=== PATIENT | female | born 1940 | race African-American/Black ===

== ENCOUNTER 2016-10-10 10:29 | Observation (INO) | payer OTHER ==
--- NOTE | ~2016-10-10 | MR18 ---
[facility] A Service of [facility] & [facility] RADIOLOGY TEXT RESULTS PATIENT: HARVINDER AMOS LOCATION: [facility] 323-01 : 42 UNIT #: [id number] AGE: [address]: Benjamin Gutiérrez MD SEX: F ORDER DR: [id number] [facility] [address] [place], [place] [address] [id number] I MR#: [id number] Acc #: [id number] NAME: HARVINDER AMOS : 1940 SEX: F STUDY DATE/TIME: 10/10/2016 13:00 [facility] STUDY DESCRIPTION: MR Brain Wo Contrast Attending Physician: Benjamin Gutiérrez M.D. Ordering Physician: Keny Leonard M.D. Primary Care Physician: Zeyad Amaya M.D. MRI CENTER REPORT This report is preliminary unless electronic signature is present. EXAM MRI of the brain without HISTORY Weakness, left-sided weakness. Patient unresponsive. Started having strokes 08/28/2016, per family. Patient has a history of hypertension, stroke and TIA, diabetes. No known trauma history. No known cancer history. TECHNIQUE MRI brain was performed without contrast using routine 1.5-T imaging technique. COMPARISON There is an earlier head CT from the same day. FINDINGS There is no evidence for a recent ischemic insult on the diffusion series. There is partly demonstrated degenerative disease in the cervical spine. There is no Chiari-I malformation. There is mild generalized atrophy. There is no extraaxial fluid collection. There are extensive lacunar insults in the basal ganglia and thalami most focally involving the left thalamus anteromedially. This includes a portion of the left internal capsule, and there is left-sided Wallerian degeneration with signal abnormality and volume loss extending into the left-sided cerebral peduncle and edelmira, and this would be consistent with right body weakness chronically. Signal abnormality is seen diffusely in the edelmira, and there is extensive signal abnormality in the supratentorial white matter, especially in the frontal lobes. These are probably all manifestations of small vessel disease, given age group and history provided. The large left-sided lacunar insult in the basal ganglia extends superiorly into the left-sided rice radiata and involves the left side body of the caudate. [facility]. [facility] A Service of [facility] & [facility] RADIOLOGY TEXT RESULTS PATIENT: HARVINDER AMOS LOCATION: [facility] 323-01 : 42 UNIT #: [id number] AGE: [address]: Benjamin Gutiérrez MD SEX: F ORDER DR: There are old blood products associated with this chronic insult. No recent intracranial hemorrhage is suspected on MRI. No intracranial mass effect. The major intracranial flow voids are maintained. Mucous retention cyst or polyp in the left maxillary sinus. Mastoid air cells are clear. No sinus air-fluid level. IMPRESSION 1. No evidence for a recent ischemic insult on the diffusion series. 2. There is extensive probable sequelae of small vessel disease. This includes a chronic insult that has resulted in left-sided Wallerian degeneration. This would account for right body weakness. STAT * RESULT Dictated by... Luz Pond M.D. THIS IS AN ELECTRONICALLY VERIFIED REPORT Luz Pond M.D. at 10/10/2016 3:12 PM Joey TD: 10/10/2016 14:43 JOB #: [id number] MRI CENTER REPORT Page 1 of 1 COPY
--- NOTE | ~2016-10-10 | CT72 ---
[facility] A Service of [facility] RADIOLOGY TEXT RESULTS PATIENT: HARVINDER AMOS LOCATION: [facility] 323-01 : 42 UNIT #: [id number] AGE: [address]: Benjamin Gutiérrez MD SEX: F ORDER DR: [id number] [facility] [address] [place], [place] [address] [id number] MR#: [id number] Acc #: [id number] NAME: HARVINDER AMOS : 1940 SEX: F STUDY DATE/TIME: 10/10/2016 10:38 UNIT: [facility] ROOM: STUDY DESCRIPTION: CT Head Wo Contrast Stroke Attending Physician: Keny Leonard M.D. Ordering Physician: Ed Doctor [id number] [facility] MEDICAL IMAGING REPORT This report is preliminary unless electronic signature is present EXAM Had CT without contrast HISTORY Left-sided weakness, onset today. TECHNIQUE Axial images were obtained without contrast. This CT exam was performed with one or more of the following radiation dose reduction techniques: automatic exposure control, adjustment of mA and/or kV according to patient size, and iterative reconstruction. COMPARISON 01/01/2016 FINDINGS Generalized atrophy is seen. There are extensive chronic ischemic changes around the ventricles, more on the left than on the right. There is no evidence of mass lesion, hemorrhage or edema. Chronic ischemic change is also seen in the left upper edelmira. Since the previous examination no new lesions are identified. There is no evidence of hemorrhage, edema or midline shift. Extraaxial structures are unremarkable. IMPRESSION Atrophy with extensive chronic ischemic changes, left greater than right. No acute findings. No changes since the previous scan. Dictated by... Samy Miller M.D. THIS IS AN ELECTRONICALLY VERIFIED REPORT Samy Miller M.D. at 10/10/2016 4:33 PM [facility] A Service of [facility] RADIOLOGY TEXT RESULTS PATIENT: HARVINDER AMOS LOCATION: [facility] 323-01 : 42 UNIT #: [id number] AGE: [address]: Benjamin Gutiérrez MD SEX: F ORDER DR: MARIA C/meli TD: 10/10/2016 11:38 JOB #: [id number] MEDICAL IMAGING REPORT Page 1 of 1 COPY
--- NOTE | ~2016-10-10 | EKG ---
PATIENT: HARVINDER AMOS UNIT #: [id number] Ventricular Rate: 73 BPM Atrial Rate: 73 BPM P-R Interval: 140 ms QRS Duration: 84 ms Q-T Interval: 426 ms QTC Calculation(Bezet): 469 ms P Tichnor: 59 degrees Calculated R Tichnor: -44 degrees Calculated T Tichnor: 13 degrees Diagnosis Line: Normal sinus rhythm Diagnosis Line: Left axis deviation Diagnosis Line: Abnormal ECG Diagnosis Line: No previous ECGs available Diagnosis Line: Confirmed by MILTON LEVY MD ([id number]) on Diagnosis Line: 10/11/2016 9:03:18 AM INTERPRETING MD: MILDRED TANG
--- NOTE | ~2016-10-10 | CO ---
Unit #: [id number] #: [id number] Patient: HARVINDER AMOS [address] [facility] [address] [place], [place] [address] [id number] I MR#: [id number] NAME: HARVINDER AMOS ROOM: 323 Age: 76 Sex: F Admission Date: 10/10/2016 : 1940 Attending Physician: Lm Wyatt Primary Care Physician: Zeyad Amaya M.D. CONSULTATION REPORT REASON FOR CONSULT Code stroke protocol. PATIENT IDENTIFICATION This is a 76-year-old, right-handed, female evaluated in the ER. The patient is now in 323 at [facility]. SOURCE OF INFORMATION Obtained from the patient's daughter at the bedside, as well as the medical record. HISTORY OF PRESENT ILLNESS This is a 76-year-old, right-handed, female with a past medical history of advanced dementia who was brought in via EMS as a code stroke alert this morning. She was apparently in transit to [facility] from her home. She lives with family. She was apparently noted to be poorly responsive. Her eyes were looking out, and then she was noted to have left-sided weakness or paralysis. EMS was called, and she was brought here for further evaluation. Upon arrival here, she was noted by the ED physician to be flaccid on the left side. Her vital signs were stable, so she went straight to the CT scanner, and I saw the patient while there. Her symptoms were not noted in the CAT scanner and appeared to have resolved; thus, she was not a candidate for acute intervention with alteplase or thrombectomy. She was able to move all extremities. Her lower extremities are weaker bilaterally. She does use a walker and sometimes a wheelchair at baseline, but she was nonfocal and moving all extremities equally and able to name and identify and follow simple commands. She is confused and not fully alert. She does require stimulation. Her daughter arrived shortly thereafter and reports that this mental status is her baseline. Her head CT was negative for any acute intracranial abnormalities. It did show atrophy with extensive chronic ischemic changes, left greater than right, but again, no acute findings and no changes from previous exam. She was unable to undergo a CT angiogram of the head and neck given her hhboi-ve-voth creatinine was 1.6 and estimated GFR was 40, and the CT scanner and her symptoms were resolving and not suggestive of a large artery stroke at this time. Thus, we elected to hold off on a CT angiogram, and Dr. Irizarry recommended that she go for a STAT MRI of the brain and MRA of the head and neck, no contrast. She had an MRI of the brain without contrast that did not show any Unit #: [id number] #: [id number] Patient: HARVINDER AMOS evidence for a recent ischemic insult on the diffusion series. It does show extensive probable sequelae of small vessel disease, as well as a chronic insult that has resulted in left-sided Wallerian degeneration, although that does not explain her left-sided weakness, which has resolved. MRA of the neck was done, as well, which by NASCET criteria shows no hemodynamically-significant narrowing at either carotid bifurcation with both vertebral arteries patent in their visualized portions, with the left being dominant. The right is smaller. She had an MRA of the head, as well, without contrast, which has been reviewed at length and also discussed with Dr. Irizarry. Please see report for detailed findings. They are most consistent with severe intracranial atherosclerotic disease. All vascular territories involved with multiple areas of high-grade stenosis or possibly occlusion with reconstitution, per radiology report. The former is favored since MR angiography has a tendency to overestimate stenosis. Per radiology report, suspicion that is progressed from a CT angiogram of 11/28/2015. Less likely consideration would be vasculitis. The patient is unable to provide any meaningful history, and otherwise history, as discussed above, is obtained from EMS and also the patient's daughter. She was brought in as a code stroke because her last known well was within the hour prior to arrival. PAST MEDICAL HISTORY 1. Advanced dementia. She lives with family, including her daughter, and goes to [employer] [facility] [employer] daycare during the day. 2. History of stroke. 3. Multiple TIAs. 4. Diabetes mellitus. She is insulin dependent. 5. Hyperlipidemia. 6. B12 deficiency. FAMILY HISTORY Noncontributory to the presenting condition, especially given her age. SOCIAL HISTORY The patient lives with her daughter. She goes to [employer] [facility] [employer] during the day. She has advanced dementia. At baseline uses a walker and sometimes a wheelchair and requires help with normal ADLs. At baseline she is confused. No current tobacco use, alcohol use or illicit drug use. ALLERGIES Penicillin. HOME MEDICATIONS (as per med/rec) 1. Lipitor 80 mg p.o. daily. 2. Clopidogrel 75 mg p.o. daily. 3. Felodipine ER 5 mg p.o. daily. 4. Namzaric 28/10 mg capsule 1 tab p.o. daily. 5. Sertraline 50 mg p.o. daily. 6. Vitamin B12 - 1 vial IM monthly on the 10th of every month. 7. Aspirin 325 mg p.o. daily, although the patient's daughter states that she does not believe she has been taking that recently. 8. Levemir insulin 5 units subcu daily. 9. Zetia 10 mg p.o. daily. Unit #: [id number] #: [id number] Patient: HARVINDER AMOS REVIEW OF SYSTEMS A 14-point review of systems was attempted with the daughter. Discussed with her. The patient is unable to contribute. Pertinent positives are as discussed above; otherwise, negative. There has been no report of any recent infectious disease or illness, headache or other neurologic changes prior to this morning. No headache or neck pain, fever or chills, shortness of air, chest pain, nausea or vomiting, abdominal pain or any bruising or bleeding. PHYSICAL EXAMINATION VITAL SIGNS: Temperature 98.4. On arrival she was 98.6. Pulse 60, respirations 18, blood pressure 142/87. Blood pressure in the ER on arrival was 121/69. Oxygen saturation 100%. Height 5'4", weight 147 pounds, BMI 25. NEUROLOGIC EXAMINATION MENTAL STATUS: The patient is awake but not fully alert. She is arousable to voice and touch. She is confused, but she can name and identify and follow some simple commands. Her laundry housekeeping aide strength is equal. She withdraws equally in the lower extremities. She has no drift in the upper extremities. She does have some left facial asymmetry but no flattening of the nasolabial fold with grimace. Unable to assess cognitive exam in detail, as she has baseline advanced dementia, but again, she can name and identify and follow simple commands. She is oriented to person, but she is not oriented to place or time. CRANIAL NERVE EXAM: She responds to threats in the primary and peripheral visual murrell. Eyes are conjugate without ptosis or nystagmus. Difficult examination of extraocular movements, but with head turning, she does not appear to have any deficit. Unable to assess sensation of the face and scalp. Strength of muscles of facial expression, again, as discussed above. Hearing is intact to conversation. Unable to assess tongue, uvula or palate at this time due to poor patient cooperation. Head turning is unremarkable spontaneously. Neck is supple. MOTOR EXAM: As discussed above. She does have a drift of the lower extremities bilaterally to the bed, but they are equal, and she does withdraw equally and responds to noxious stimuli in lower extremities against gravity. GAIT AND ROMBERG: Deferred. REFLEXES: Unable to elicit. Toes are equivocal. COORDINATION: Unable to full assess. DIAGNOSTIC STUDIES Please see above. LABS: Sodium 158, potassium 3.1, chloride 123, CO2 29, glucose 138, BUN 60, creatinine 1.8, estimated GFR 31.6, calcium 9.5. PT 12.1, INR 1.1, PTT 22.2. Troponin less than 0.05. White blood cell count 11.4, hemoglobin 14.7, hematocrit 46.7, platelet count 128. Glucose on arrival 148. IMPRESSION 1. Change in mental status with decreased responsiveness and reported left-sided hemiparesis, resolved. No ischemic stroke. Consider TIA versus possible seizure in the differential diagnosis. 2. Advanced dementia. Patient is at her baseline. 3. 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 Suspect may be contributing to the patient's advanced dementia. Continue aspirin and Plavix and intensive statin therapy. Unit #: [id number] #: [id number] Patient: HARVINDER AMOS 4. Hyperlipidemia. 5. Diabetes mellitus, insulin dependent. 6. Hypernatremia. Defer to primary. 7. Kidney disease. PLAN Patient was seen initially at the time of code stroke and reevaluated by myself, as well as Dr. Irizarry, once the patient was transferred on the floor. We discussed with the patient's daughter, who wanted the patient transferred to [facility], as the patient typically goes there. However, it looks like the patient is staying here, as the patient does need transfer for higher level of care at this time. We will follow the patient along with you as long as she is here. At this time will check platelet function analysis for aspirin and Plavix but concern that she is already maximally treated on medical management. Will check a two-D echo and reevaluate in the morning with Dr. Irizarry and see how the patient is doing. At this time nothing to suggest a cardioembolic cause and suspect this is likely secondary to severe intracranial vascular disease. She is high risk for further TIA and stroke and has extensive chronic small vessel changes. She is already being treated maximally on aspirin and Plavix, although her daughter states that she does not believe she was taking her aspirin at home, so may only be truly on single antiplatelet therapy. Definitely recommend dual antiplatelet therapy and intensive statin therapy, on which we have put the patient. Further recommendations to be made pending workup and further clinical course. We will also order an EEG. We thank you very much for allowing us to assist in the care of this patient. Dictated by... Justina Menard A.P.R.N. for Gaye Pyle/lorie TD: 10/11/2016 09:23 JOB #: [id number] CONSULTATION REPORT Page 1 of 1 X Justina Menard STATION MECHANIC X CONSULTATION REPORT
--- NOTE | ~2016-10-10 | MR134 ---
[facility] A Service of [facility] & [facility] RADIOLOGY TEXT RESULTS PATIENT: HARVINDER AMOS LOCATION: [facility] 323-01 : 42 UNIT #: [id number] AGE: [address]: Benjamin Gutiérrez MD SEX: F ORDER DR: [id number] [facility] [address] [place], [place] [address] [id number] I MR#: [id number] Acc #: [id number] NAME: HARVINDER AMOS : 1940 SEX: F STUDY DATE/TIME: 10/10/2016 13:26 UNIT: [address] ROOM: [facility] STUDY DESCRIPTION: MR MRA Neck Wo Contrast Attending Physician: Benjamin Gutiérrez M.D. Ordering Physician: Keny Leonard M.D. Primary Care Physician: Zeyad Amaya M.D. MRI CENTER REPORT This report is preliminary unless electronic signature is present. EXAM MR angiogram of the neck without HISTORY The patient has been having strokes since 08/28/2016 per patient family. Patient herself is unresponsive and unable to provide history. She does have a history of hypertension and diabetes. No history of cancer or trauma provided. COMMENT MR angiography performed neck vessels centered at the level of the carotid bifurcations. By NASCET criteria, no hemodynamically-significant narrowing is appreciated at either carotid bifurcation. I suspect that there is mild stenosis on the right about 20% diameter and mild stenosis on the left about 5% diameter. Both vertebral arteries are patent. The left is mildly dominant. IMPRESSION By NASCET criteria, no hemodynamically-significant narrowing is suspected at either carotid bifurcation. Both vertebral arteries are patent in their visualized portions, left dominant. STAT * RESULT Dictated by... Luz Pond M.D. THIS IS AN ELECTRONICALLY VERIFIED REPORT Luz Pond M.D. at 10/10/2016 3:12 PM NATALIE/meli STS. [facility] A Service of [facility] RADIOLOGY TEXT RESULTS PATIENT: HARVINDER AOMS LOCATION: [facility] 323-01 : 42 UNIT #: [id number] AGE: [address]: Benjamin Gutiérrez MD SEX: F ORDER DR: TD: 10/10/2016 14:51 JOB #: [id number] MRI CENTER REPORT Page 1 of 1 COPY
--- NOTE | ~2016-10-10 | A ---
[facility] Nutrition Therapy DATE: 10/11/16 Patient: HARVINDER AMOS Physician: MORCAR Address: [address] Room/Bed: [address] [place] [address], Zip: [place] [address] Admit Date: 10/10/16 Date of : 42 Height: 5 4 Weight: 147 67 NUTRITIONAL ASSESSMENT: REASON: PT SEEN FOR DX + CONSULT PT IS 76 Y.O. FEMALE ADMITTED FOR TIA PMH: ADVANCED DEMENTIA, MULTIPLE TIAs, DM, HLD, B12 DEFICIENCY Anthropometrics: 5'4", WT: 147# (67 KG), BMI: 25.2 Labs: BUN: 51, CREAT: 1.5, K+:3.3, NA+:154, A1c: 6.8 Meds: KCL, NOVOLOG, D5% I/O & Bowel function: 600/2 Skin Integrity: NO KNOWN SKIN ISSUES Estimated Nutrition Needs: INCREASED NEED 2' ?WEIGHT LOSS NOTED, DECREASED PO INAKE AND APPETITE Assessment: CHART REVIEWED AND EVENTS NOTED. PT SEEN FOR DX. PT UNABLE TO PROVIDE HISTORY 2' PMH (ADVANCED DEMENTIA). RD SPOKE TO FAMILY. FAMILY REPORTS PT TO HAVE DECREASED PO INTAKE 2' DECREASED APPETITE PAST MONTH 2' "NOT FEELING WELL". FAMILY ADDS THAT PT HAS LOST ~20# PAST 2 MONTHS?/NOTES UBW IS ~170-180#. THIS RD ENCOURAGED ADEQUATE KCAL AND PROTEIN INTAKE (SMALL,FREQUENT MEALS) + SUPPLEMENT INTAKE, FAMILY AGREED ENSURE PUDDING WOULD BE BENEFICIAL. RD ALSO PROVIDED VERBAL HEALTHY HEART DIET EDUCATION 2'PMH AND DX. FAMILY REPORTED NO DIET QUESTIONS AT THIS TIME. RD TO FOLLOW. Dx: INADEUQATE NUTRIENT INTAKE R/T DECREASED APPETITE, PMH AEB FAMILY REPORT ABOVE, ~20# SEVERE WEIGHT LOSS IN PAST 2 MONTHS. Intervention: 1. PUREED + HONEY THICK LIQUID DIET 2. ENSURE PUDDING BID 3. VERBAL DIET EDUCATION 4. RD CONSULT Monitoring, Evaluation and Goals: 1. ORAL INTAKE; CONSUME/TOLERATE >50% OF MEALS AND SUPPLEMENTS 2. WEIGHTS; PREVENT FURTHER UNINTENTIONAL WEIGHT LOSS 3. LABS; WNL 4. GI; PROMOTE REGULAR GI FUNCTION MONITOR: [facility] Nutrition Therapy DATE: 10/11/16 Patient: HARVINDER AMOS Physician: NIKHIL Address: [address] Room/Bed: [facility] [facility], Zip: [place] [address] Admit Date: 10/10/16 Date of : 42 Height: 5 4 Weight: 147 67 -PO INTAKE/APPETITE -WEIGHTS -SUPPLEMENT INTAKE Recommendations: 1. CONTINUE HAND MODEL DIET ABOVE FOR SAFE SWALLOW 2. PLEASE ORDER VANILLA ENSURE PUDDING BID W/MEALS 3. APPRECIATE FAMILY AND STAFF TO ENCOURAGE ADEQUATE PO INTAKE. PROVIDE ASSISTANCE W/ORDERNG MEALS NEEDED RD WILL F/U PER PROTOCOL PT IS MILD/MODERATELY COMPROMISED Respectfully, UBALDO SKINNER MS, RD, LD [employer] and [facility] cc: client file
--- NOTE | ~2016-10-10 | DS ---
Unit #: [id number] #: [id number] Patient: HARVINDER AMOS [id number] [address] [id number] MR#: [id number] NAME: HARVINDER AMOS ROOM: 323 Age: 76 Sex: F Admission Date: 10/10/2016 : 1940 Discharge Date: 10/11/2016 Attending Physician: Lm Wyatt M.D. Primary Care Physician: Zeyad Amaya M.D. DISCHARGE SUMMARY PERTINENT HISTORY AND HOSPITAL COURSE The patient is a 76-year-old woman with advanced dementia, and was noted to have left-sided facial droop on 10/10/2016. When she arrived at the emergency room, her symptoms had resolved spontaneously. During her admission, the patient had a CAT scan of her head, which was negative for any acute intracranial abnormalities. It did show atrophy and extensive chronic ischemic changes. The patient was discharged the following day. DISCHARGE MEDICATIONS Lipitor 80 mg daily, Plavix 75 mg daily, felodipine 5 mg daily, sertraline 50 mg daily, aspirin 325 mg daily, Levemir 5 units daily, Zetia 10 mg daily, Namzaric 28/10 one p.o. daily. CONSULTATION Neurology consultation obtained. DISCHARGE INSTRUCTION Follow up with primary care physician. Dictated by... Gaye Driver/yulisa TD: 10/18/2016 13:40 JOB #: [id number] DISCHARGE SUMMARY Page 1 of 1 X Benjamin Gutiérrez MD X DISCHARGE SUMMARY
--- NOTE | ~2016-10-10 | MR122 ---
[facility] A Service of [facility] RADIOLOGY TEXT RESULTS PATIENT: HARVINDER AMOS LOCATION: [facility] 323- : 42 UNIT #: [id number] AGE: [address]: Benjamin Gutiérrez MD SEX: F ORDER DR: [id number] [facility] [address] [place], [place] [address] [id number] MR#: [id number] Acc #: [id number] NAME: HARVINDER AMOS : 1940 SEX: F STUDY DATE/TIME: 10/10/2016 13:16 UNIT: A PCU ROOM: 323 STUDY DESCRIPTION: MR MRA Head Wo Contrast Attending Physician: Benjamin Gutiérrez M.D. Ordering Physician: Broderick Leonard, [id number] Primary Care Physician: Zeyad Amaya M.D. MRI CENTER REPORT This report is preliminary unless electronic signature is present. EXAM MR angiogram rampart of Tolbert vasculature HISTORY Left-sided weakness. Patient unresponsive having strokes since 08/28/2016 per family. History of hypertension, diabetes. No trauma or cancer history. COMMENT MR angiography performed rampart of Tolbert vasculature. There is previous CT angiogram of the head and neck from 11/30/2015. Redemonstrated is extensive irregular intracranial vascular narrowing much of which is severe. In patient age group this is probably due to severe intracranial atherosclerotic disease though alternate consideration would be vasculitis. It is difficult to compare the MR angiogram and the CT angiogram since there is signal loss on an MR angiogram at areas of high-grade stenosis. Allowing for this it appears that the disease is progressed from the 11/28/2015. There is a signal dropout at the right ICA terminus extending into the right side A1 and M1 vessels. Also signal dropout proximal right M2 vessel as well as narrowing of the distal right M1 vessel. Long segment signal loss noted in the left A2 to A3 vessel over about 2 cm in length with irregular narrowing of both A1 vessels worse to the left than the right. Also irregular stenosis in the left MCA territory M1 M2 vessels. Probably areas more distal stenosis in the MCA territories and RUSSELL territories but this is difficult to evaluate well on a MR angiogram due to artifact. Irregular signal loss is noted in the posterior cerebral artery distribution bilaterally with about 5 mm in length signal loss left P3 vessel. Short segment signal loss right P2 vessel. The distal left vertebral artery is dominant and the distal right vertebral artery is hypoplastic. There is no gross distal vascular cutoff. There is no significant sized anterior communicator or right posterior communicator. There is a left posterior communicator of [facility] A Service of [facility] RADIOLOGY TEXT RESULTS PATIENT: HARVINDER AMOS LOCATION: C3A 323-01 : 42 UNIT #: [id number] AGE: [address]: Benjamin Gutiérrez MD SEX: F ORDER DR: moderate size. IMPRESSION 1. Findings are most consistent with severe intracranial atherosclerotic disease. All vascular territories are involved with multiple areas of high-grade stenosis or possibly occlusion with reconstitution. The former is favored since MR angiography has a tendency to overestimate stenosis. Allowing for technical differences I suspect that this is progressed from a CT angiogram of 11/28/2015. Please correlate for clinical evidence of intracranial atherosclerotic disease. Less likely consideration would be vasculitis. STAT * RESULT Dictated by... Luz Pond M.D. THIS IS AN ELECTRONICALLY VERIFIED REPORT Luz Pond M.D. at 10/10/2016 3:12 PM NATALIE/karlie TD: 10/10/2016 14:52 JOB #: [id number] MRI CENTER REPORT Page 1 of 1 COPY
--- NOTE | ~2016-10-10 | HP ---
Unit #: [id number] #: [id number] Patient: HARVINDER AMOS [id number] [address] [address] [id number] I MR#: [id number] NAME: HARVINDER AMOS ROOM: 323 Age: 76 Sex: F Admission Date: 10/10/2016 : 1940 Attending Physician: Lm Sandoval [facility] Primary Care Physician: Zeyad Amaya M.D. HISTORY AND PHYSICAL CHIEF COMPLAINT Facial droop. HISTORY OF PRESENT ILLNESS The patient is a 76-year-old demented female who was on her way to adult day care when she was noted to have a left facial droop. Additionally she was noted to have left-sided weakness and was brought to the emergency department. In the ED the symptoms resolved spontaneously and the patient is being admitted for TIA. Secondary to the patient's dementia she is unable to provide a history. PAST MEDICAL HISTORY Dementia, stroke and TIAs, diabetes type 2 insulin dependent, hyperlipidemia, B12 deficiency. PAST SURGICAL HISTORY Unable to obtain. FAMILY HISTORY Unable to obtain. SOCIAL HISTORY The patient lives with a daughter, uses a walker. There is no alcohol, tobacco or illicit drug use. ALLERGIES Penicillin. HOME MEDICATIONS 1. Lipitor 80 mg daily. 2. Plavix 75 mg daily. 3. Felodipine ER 5 mg daily. 4. Namzaric 28/10 one p.o. daily. 5. Sertraline 50 mg daily. 6. Vitamin B12 monthly. 7. Aspirin 325 mg p.o. daily. 8. Levemir 5 units daily. 9. Zetia 10 mg daily. REVIEW OF SYSTEMS Unable to obtain. PHYSICAL EXAMINATION VITAL SIGNS: Temperature 98.6. Pulse 89. Blood pressure 120/69. Unit #: [id number] #: [id number] Patient: HARVINDER AMOS GENERAL: A 76-year-old female in no acute distress, appears stated age. HEENT: Pupils are equally round. Extraocular movements intact. Mucous membranes dry. NECK: Supple. No JVD. No lymphadenopathy. CARDIAC: Regular rate and rhythm. No murmurs, gallops or rubs. LUNGS: Clear to auscultation bilaterally. ABDOMEN: Nontender, nondistended. Bowel sounds positive. EXTREMITIES: No cyanosis, clubbing or edema. They are warm and dry. PSYCHIATRIC: Alert and oriented x1. Affect is flat. NEUROLOGICAL: Cranial nerves II through XII intact grossly. The patient moves all extremities equally and with purpose. SKIN: No rashes, bruises or ulcers. MUSCULOSKELETAL: No muscle or joint pain. No muscle or joint swelling. DIAGNOSTIC STUDIES LABORATORY: Creatinine 1.8, glucose 138, sodium 154, white count 11.4. IMAGING: CT head without contrast shows no acute findings. ASSESSMENT AND PLAN 1. Transient ischemic attack: Symptoms of stroke have completely resolved. Two-D echo and EEG have been ordered. 2. Advanced dementia: Supportive care. 3. Diabetes: Continue insulin. 4. Prophylaxis: The patient is low risk, has been started on SCDs. Dictated by Benjamin Gutiérrez M.D. LEE/jian TD: 10/11/2016 21:14 JOB #: [id number] HISTORY AND PHYSICAL Page 1 of 1 X Benjamin Gutiérrez MD X HISTORY AND PHYSICAL
--- NOTE | ~2016-10-10 | EE ---
Unit #: [id number] #: [id number] Patient: HARVINDER AMOS [id number] [address] [address] [id number] I MR#: [id number] NAME: HARVINDER AMOS : 1940 SEX: F STUDY DATE/TIME: 10/11/2016 UNIT: C3A PCU ROOM: 323 STUDY DESCRIPTION: Attending Physician: Lm Wyatt Primary Care Physician: Zeyad Amaya M.D. NEURODIAGNOSTICS REPORT REASON FOR STUDY Syncope, mental status changes, worsening. EEG DESCRIPTION This is an inpatient, digitally recorded multimontage adult EEG with leads placed according to the International 10/20 system. Hyperventilation and photic stimulation were not done. This EEG shows mild background slowing. I did not see any good Alpha rhythm though there was 7.5 and even 8 Hz activity but Alpha rhythm was not established and the patient was drowsy and later on stage 2 sleep was seen. Nothing suggesting seizure. Nothing suggesting status, nothing suggesting interictal discharges. No clinical events were seen. Hyperventilation and photic stimulation were not done. The patient did have stage 2 sleep. IMPRESSION Minimally abnormal EEG showing very mild slowing which is indicative of encephalopathy that is very nonspecific. Clinical correlation is recommended. EEG like this does not rule out epilepsy. Dictated by... Gaye Pyle/chepe TD: 10/12/2016 14:43 JOB #: [id number] NEURODIAGNOSTICS REPORT Page 1 of 1 X Zhen Irizarry MD NEURODIAGNOSTICS REPORT
[2016-10-10] MEDS ORDERED: NAMZARIC 28 MG1 EACH PO (10:55)
[2016-10-10] MEDS ORDERED: CLOPIDOGREL75 MG PO (10:55)
[2016-10-10] MEDS ORDERED: FELODIPINE ER5 MG PO (10:55)
[2016-10-10] MEDS ORDERED: PATIENT'S PHARMACY (10:55)
[2016-10-10] MEDS ORDERED: ZOLOFT PO (10:55)
[2016-10-10] MEDS ORDERED: LIPITOR80 MG PO (10:55)
[2016-10-10] MEDS ORDERED: CYANOCOBAL1000 MCG/M IM (10:56)
[2016-10-10] MEDS ORDERED: ASPIR-TRIN325 MG PO (10:56)
[2016-10-10] MEDS ORDERED: LEVEMIR FL100 UNIT/1 SUBQ (11:14)
[2016-10-10 11:19] LABS: BASOPHIL# 0.1 X10e3 (0-0.3); EOSINOPHIL% 0.1 % (0.0-7.0); HEMATOCRIT 46.7 % (35.0-45.0); HEMOGLOBIN 14.7 gm/dL (12.0-16.0); LYMPHOCYTE# 1.6 X10e3 (1.0-3.5); LYMPHOCYTE% 13.9 % (17.0-45.0); MEAN CELL VOLUME 95.1 FL (83-96); MEAN CORPUSCULAR HEMOGLOBIN 29.9 PG (28-34); MEAN CORPUSCULAR HGB CONC 31.4 g/dL (30-36); MEAN PLATELET VOLUME 11.4 FL (6.5-11.5); MONOCYTE# 0.9 X10e3 (0-1.0); NEUTROPHIL# 8.8 X10e3 (1.5-7.1); PLATELET COUNT 128 X10e3 (140-420); RED BLOOD COUNT 4.91 X10e (3.90-5.30); RED CELL DISTRIBUTION WIDTH 15.3 % (11.0-15.5); WHITE BLOOD COUNT 11.4 X10e3 (4.0-10.5)
[2016-10-10 11:21] LABS: DIFF IND NO
[2016-10-10 11:26] LABS: POC - CKMB <1.0 ng/mL (0.0-7.9); POC - TROPONIN <0.05 ng/mL (<=0.05)
[2016-10-10 11:31] LABS: URINE SOURCE CATH
[2016-10-10 11:32] LABS: INR 1.1; PARTIAL THROMBOPLASTIN TIME 22.2 SECONDS (23.5-31.3); PROTHROMBIN TIME (PATIENT) 12.1 SECONDS (10.0-11.7)
[2016-10-10 11:36] LABS: URINE APPEARANCE CLOUDY; URINE BILIRUBIN NEG (NEG); URINE BLOOD NEG (NEG); URINE COLOR DK YELLOW; URINE GLUCOSE NEG (NEG); URINE KETONE TRACE (NEG); URINE LEUKOCYTE ESTERASE TRACE (NEG); URINE NITRATE NEG (NEG); URINE PROTEIN TRACE (NEG); URINE SPECIFIC GRAVITY 1.031 (1.003-1.035)
[2016-10-10 11:38] LABS: URBCS1 AUWI 0-2 /[HPF] (0-2); URINE BACTERIA AUWI NEG (NEGATIVE); URINE SQUAMOUS EPITHELIAL CELL FEW /[HPF]; UWBCS1 AUWI 0-2 (0-5)
[2016-10-10 11:45] LABS: BUN/CREATININE RATIO 33.33; CALCIUM SERUM 9.5 mg/dL (8.4-10.2); CREATININE SERUM 1.8 mg/dL (0.6-1.4); GLOM FILT RATE Estimated 31.6 mL/min (>60); POTASSIUM 3.1 mmol/L (3.5-5.1)
[2016-10-10 11:54] LABS: CULTURE INDICATED? NO
[2016-10-10] MEDS ORDERED: ZETIA PO (12:26)
[2016-10-10 15:11] LABS: POC - CREATININE 1.61 mg/dL (0.44-1.03)
[2016-10-10 17:50] LABS: HEMOGLOBIN 13.5 gm/dL (12.0-16.0); MEAN CELL VOLUME 95.7 FL (83-96); MEAN CORPUSCULAR HGB CONC 31.4 g/dL (30-36); MEAN PLATELET VOLUME 11.9 FL (6.5-11.5); RED BLOOD COUNT 4.49 X10e (3.90-5.30); RED CELL DISTRIBUTION WIDTH 15.4 % (11.0-15.5); WHITE BLOOD COUNT 9.4 X10e3 (4.0-10.5)
[2016-10-10 17:53] LABS: INR 1.1
[2016-10-10 18:23] LABS: ALBUMIN SERUM 3.8 g/dL (3.5-5.0); BILIRUBIN,TOTAL 1.6 mg/dL (0.2-2.0); CALCIUM SERUM 8.6 mg/dL (8.4-10.2); CREATININE SERUM 1.5 mg/dL (0.6-1.4); GLOM FILT RATE Estimated 39.4 mL/min (>60); POTASSIUM 3.3 mmol/L (3.5-5.1); PROTEIN TOTAL SERUM 6.4 g/dL (6.0-8.3)
[2016-10-10 18:41] LABS: %MB 2.6 % (0.0-4.0); MB 1.8 ng/ml
[2016-10-11 09:53] LABS: P2Y12 INHIB (PFAPLAVIX) 261 PRU (()); PLT FUNCTION ASPIRIN TEST -JH 544 ARU (350-500)
== END 2016-10-11 18:32 | disposition home or self-care (01) ==
LOC: CED 10:29 → CEDOF 13:07 → CED 13:32 → C3A PCU 13:32 → CEDOF 14:18 → C3A PCU 10-11 08:30
PROVIDERS: Emergency Medicine; Internal Medicine; Nurse Practitioner
DX: G45.9 Transient cerebral ischemic attack, unspecified (principal); F03.90 Unspecified dementia, unspecified severity, without behavioral disturbance, psychotic disturbance, mood disturbance, and anxiety; E11.9 Type 2 diabetes mellitus without complications; Z79.4 Long term (current) use of insulin; E78.5 Hyperlipidemia, unspecified; E53.8 Deficiency of other specified B group vitamins; Z86.73 Personal history of transient ischemic attack (TIA), and cerebral infarction without residual deficits; I08.8 Other rheumatic multiple valve diseases
CPT/HCPCS: 36415; 70450; 70544; 70547; 70551; 80048; 80053; 80061; 81003; 82550; 82553; 82565; 82947; 83036; 84443; 84484; 85025; 85027; 85576; 85610; 85730; 86140; 92523-GN; 92610; 93005; 93306; 95816; 96360; 96361; 97162; 97167; 99285; G0378; G8978-GP; G8979-GP; G8980-GP; G8987-GO; G8988-GO; G8989-GO; G8996-GN; G8997-GN; J1815; J3480; J7060